=== PATIENT | male | born 2000 | race African-American/Black ===

== ENCOUNTER 2022-12-17 13:04 | Emergency (ER) | payer OTHER ==
[2022-12-17 13:26] VITALS: BP 130/82; PULSE 89; RESP 18; TEMP 97.6
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
== END 2022-12-17 14:32 | disposition home or self-care (01) ==
LOC: EC 13:04
DX: T25.222A Burn of second degree of left foot, initial encounter (principal); F17.290 Nicotine dependence, other tobacco product, uncomplicated
CPT/HCPCS: 99283

== ENCOUNTER 2022-12-21 09:06 | Emergency (ER) | payer OTHER ==
[2022-12-21 09:15] VITALS: BP 119/78; PULSE 89; RESP 18; TEMP 98.7
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
== END 2022-12-21 10:07 | disposition home or self-care (01) ==
LOC: EC 09:06
DX: T25.022A Burn of unspecified degree of left foot, initial encounter (principal); F17.290 Nicotine dependence, other tobacco product, uncomplicated; Z76.5 Malingerer [conscious simulation]; X19.XXXA Contact with other heat and hot substances, initial encounter
CPT/HCPCS: 99283